=== PATIENT | male | born 1990 | race Native Hawaiian/Other Pacific Islander ===

== ENCOUNTER 2016-12-17 10:16 | Emergency (ER) | payer MEDICAID ==
[2016-12-17 10:20] VITALS: BMI 23.5
--- NOTE | 2016-12-17 10:43 | ED PDOC ---
HPI: General Adult Time Seen by Provider: 12/17/16 10:35 Chief Complaint (Provider): neck pain History Per: Patient History/Exam Limitations: no limitations Additional Complaint(s): 26yo male was playing rugby over the weekend states he fell on his neck a few times while playing. now complains of right rib pain, some neck pain and headaches. No numbness to right arm. Denies any trauma. States he recently moved to the area and does not have a PMD or preferred pharmacy Past Medical History Reviewed: Historical Data, Nursing Documentation, Vital Signs Vital Signs: Last Vital Signs Temp 97.9 F 12/17/16 12:31 Pulse 77 12/17/16 12:31 Resp 18 12/17/16 12:31 BP 121/77 12/17/16 12:31 Pulse Ox 99 12/17/16 12:31 - Medical History PMH: No Chronic Diseases - Surgical History Other surgeries: ACL repair - Family History Family History: States: Unknown Family Hx - Social History Current smoker - smoking cessation education provided: No Alcohol: Social Drugs: Denies - Home Medications Home Medications: Ambulatory Orders Medication Instructions Recorded Cyclobenzaprine [Cyclobenzaprine 10 mg PO Q8 PRN #9 tab 12/17/16 HCl] Naproxen [Naprosyn] 500 mg PO BID PRN #14 tablet 12/17/16 - Allergies Allergies/Adverse Reactions: Allergies Allergy/AdvReac Type Severity Reaction Status Date / Time No Known Allergies Allergy Verified 12/17/16 10:50 Review of Systems ROS Statement: Except As Marked, All Systems Reviewed And Found Negative Physical Exam - Reviewed Nursing Documentation Reviewed: Yes Vital Signs Reviewed: Yes - Physical Exam Appears: Positive for: Well, Non-toxic, No Acute Distress Head Exam: Positive for: ATRAUMATIC, NORMAL INSPECTION, NORMOCEPHALIC Skin: Positive for: Warm, Dry Neck: Positive for: Supple (+some hypertonisity in right parasinal cervical musculature) Cardiovascular/Chest: Positive for: Chest Non Tender Respiratory: Negative for: Respiratory Distress Extremity: Positive for: Normal ROM. Negative for: Tenderness Neurologic/Psych: Positive for: Alert, Oriented (x3) - ECG O2 Sat by Pulse Oximetry: 100 Medical Decision Making Medical Decision Makin: States he will not be driving today and lives a few blocks away from this ED. Explained will give Toradol & valium in the ED and reassess. Instructed to use warm compresses at home. 1225 reevaluation. symptoms have mostly resolved. Patient wants to go home. Provided with a note for school and instructions for followup. Disposition - Clinical Impression Clinical Impression: Cervical strain, acute - Patient ED Disposition Is Patient to be Admitted: No Counseled Patient/Family Regarding: Studies Performed, Diagnosis, Need For Followup, Rx Given - Disposition Referrals: Flo Croft DO [[facility]] - Disposition: Routine/Home Disposition Time: 12:25 Condition: STABLE Additional Instructions: Use gentle heat therapy to area 4x daily today and tomorrow. Use medications as directed, caution as muscle relaxants will cause drowsiness. Return to ER for any worse or new symptoms. Prescriptions: Cyclobenzaprine [Cyclobenzaprine HCl] 10 mg PO Q8 PRN #9 tab PRN Reason: Muscle Spasm Naproxen [Naprosyn] 500 mg PO BID PRN #14 tablet PRN Reason: Pain, Moderate (4-7) Instructions: Cervical Strain (DC) Forms: [facility] ED School/Work Excuse Additional Comments - Additional Comments Additional Comments: Scribe Attestation: Documented by Thierry Farrell acting as a scribe for Juan Sigala DO. Provider Scribe Attestation: All medical record entries made by the Scribe were at my direction and personally dictated by me. I have reviewed the chart and agree that the record accurately reflects my personal performance of the history, physical exam, medical decision making, and the department course for this patient. I have also personally directed, reviewed, and agree with the discharge instructions and disposition.
[2016-12-17 12:35] VITALS: BP 121/77; PULSE 77; RESP 18; TEMP 97.9
[2016-12-20 16:17] VITALS: O2SAT 100
== END 2016-12-17 12:54 | disposition home or self-care (01) ==
LOC: H.ER 10:16
DX: S16.1XXA Strain of muscle, fascia and tendon at neck level, initial encounter (principal); Y93.63 Activity, rugby

== ENCOUNTER 2017-04-26 21:43 | Emergency (ER) | payer MEDICAID ==
[2017-04-26 21:46] VITALS: BMI 25.1
[2017-04-26 21:50] VITALS: BP 144/88
--- NOTE | 2017-04-26 22:03 | ED PDOC ---
HPI: Psych/Substance Abuse Time Seen by Provider: 04/26/17 21:43 Chief Complaint (Nursing): Alcohol Ingestion Chief Complaint (Provider): ALCOHOL INGESTION History Per: Patient (26 Y/O MALE BROUGHT TO ED FOR EVALUATION OF DISRUPTIVE BEHAVIOR IN FRIEND'S APARTMENT BUILDING. PATIENT ADMITS ETOH UPSET THAT HE IS BROUGHT TO ED WITHOUT REASON. DENIES ANY HEAD INJURY/ASSAULT. NO COMPLAINTS CURRENTLY.) Past Medical History Reviewed: Historical Data, Nursing Documentation, Vital Signs Vital Signs: Last Vital Signs Temp 99.7 F H 04/26/17 21:47 Pulse 145 H 04/26/17 21:47 Resp 18 04/26/17 21:47 BP 144/88 04/26/17 21:47 Pulse Ox 97 04/26/17 21:47 - Family History Family History: States: Unknown Family Hx - Home Medications Home Medications: Ambulatory Orders Medication Instructions Recorded Cyclobenzaprine [Cyclobenzaprine 10 mg PO Q8 PRN #9 tab 12/17/16 HCl] Naproxen [Naprosyn] 500 mg PO BID PRN #14 tablet 12/17/16 - Allergies Allergies/Adverse Reactions: Allergies Allergy/AdvReac Type Severity Reaction Status Date / Time No Known Allergies Allergy Verified 04/26/17 21:46 Review of Systems ROS Statement: Except As Marked, All Systems Reviewed And Found Negative Physical Exam - Reviewed Nursing Documentation Reviewed: Yes Vital Signs Reviewed: Yes - Physical Exam Appears: Positive for: Well, Non-toxic, No Acute Distress Head Exam: Positive for: ATRAUMATIC, NORMAL INSPECTION, NORMOCEPHALIC Skin: Positive for: Normal Color, Warm, DRY Eye Exam: Positive for: EOMI, Normal appearance, PERRL ENT: Positive for: Normal ENT Inspection Neck: Positive for: Normal, Painless ROM Cardiovascular/Chest: Positive for: Regular Rate, Rhythm Respiratory: Positive for: CNT, Normal Breath Sounds Gastrointestinal/Abdominal: Positive for: Normal Exam, Bowel Sounds, Soft Back: Positive for: Normal Inspection Extremity: Positive for: Normal ROM Neurologic/Psych: Positive for: Alert, Oriented - ECG O2 Sat by Pulse Oximetry: 97 - Progress ED Course And Treament: STEADY GAIT NOTED. PATIENT ACCOMPANIED BY FRIEND WHO WILL ESCORT HIM TO HIS APARTMENT WALKING. Disposition - Clinical Impression Clinical Impression: Alcohol ingestion - Patient ED Disposition Is Patient to be Admitted: No - Disposition Disposition: Routine/Home Disposition Time: 22:03 Condition: FAIR Instructions: Alcohol Intoxication (DC) Forms: [employer] (Citizen Of [place])
[2017-04-26 22:36] VITALS: PULSE 94; RESP 16; TEMP 98; O2SAT 100
== END 2017-04-26 22:36 | disposition home or self-care (01) ==
LOC: H.ER 21:43
DX: T51.0X1A Toxic effect of ethanol, accidental (unintentional), initial encounter (principal); Y92.039 Unspecified place in apartment as the place of occurrence of the external cause

== ENCOUNTER 2018-05-15 07:03 | Emergency (ER) | payer MEDICAID ==
[2018-05-15 07:04] VITALS: BMI 25.1
[2018-05-15 07:31] VITALS: O2SAT 98
--- NOTE | 2018-05-15 08:10 | ED PDOC ---
HPI: Psych/Substance Abuse Time Seen by Provider: 05/15/18 07:44 Chief Complaint (Nursing): Anxiety Chief Complaint (Provider): Anxiety History Per: Patient History/Exam Limitations: no limitations Onset/Duration Of Symptoms: Days (1) Associated Symptoms: Other (Palpitations) Additional Complaint(s): 27 years old male presents to the ED for evaluation of anxiety of unknown trigger associated with palpitations and shortness of breath onset yesterday. Patient reports he has been unable to sleep. He denies chest pain. PMD: non provided Past Medical History Reviewed: Historical Data, Nursing Documentation, Vital Signs Vital Signs: Last Vital Signs Temp Pulse 71 05/15/18 07:27 Resp 20 05/15/18 07:27 BP 134/84 05/15/18 07:27 Pulse Ox 98 05/15/18 07:27 - Medical History PMH: No Chronic Diseases - Surgical History Surgical History: No Surg Hx - Family History Family History: States: Unknown Family Hx - Social History Current smoker - smoking cessation education provided: No Alcohol: Social Drugs: Denies - Home Medications Home Medications: Ambulatory Orders Medication Instructions Recorded Cyclobenzaprine [Cyclobenzaprine 10 mg PO Q8 PRN #9 tab 12/17/16 HCl] Naproxen [Naprosyn] 500 mg PO BID PRN #14 tablet 12/17/16 - Allergies Allergies/Adverse Reactions: Allergies Allergy/AdvReac Type Severity Reaction Status Date / Time No Known Allergies Allergy Verified 04/26/17 21:46 Review of Systems ROS Statement: Except As Marked, All Systems Reviewed And Found Negative Cardiovascular: Positive for: Palpitations. Negative for: Chest Pain Respiratory: Positive for: Shortness of Breath Psych: Positive for: Anxiety Physical Exam - Reviewed Nursing Documentation Reviewed: Yes Vital Signs Reviewed: Yes - Physical Exam Appears: Positive for: Non-toxic, No Acute Distress Head Exam: Positive for: ATRAUMATIC, NORMOCEPHALIC Skin: Positive for: Normal Color, Warm, Dry Eye Exam: Positive for: Normal appearance, EOMI, PERRL Cardiovascular/Chest: Positive for: Regular Rate, Rhythm. Negative for: Murmur Respiratory: Positive for: Normal Breath Sounds. Negative for: Wheezing Gastrointestinal/Abdominal: Positive for: Normal Exam, Soft. Negative for: Tenderness Extremity: Positive for: Normal ROM Neurologic/Psych: Positive for: Alert, Oriented (x3) - ECG O2 Sat by Pulse Oximetry: 98 (RA) Pulse Ox Interpretation: Normal - Progress Re-evaluation Time: Condition: Improved Medical Decision Making Medical Decision Making: Time: 753 Initial Plan: --EKG --Ativan 1 mg PO Scribe Attestation: Documented by Jazmyn Ballesteros, acting as a scribe for Edwin Arroyo MD. Provider Scribe Attestation: All medical record entries made by the Scribe were at my direction and personally dictated by me. I have reviewed the chart and agree that the record accurately reflects my personal performance of the history, physical exam, medical decision making, and the department course for this patient. I have also personally directed, reviewed, and agree with the discharge instructions and disposition. Disposition - Clinical Impression Clinical Impression: Anxiety attack - Patient ED Disposition Is Patient to be Admitted: No Counseled Patient/Family Regarding: Studies Performed, Diagnosis, Need For Followup - Disposition Referrals: [facility] [Outside] Disposition: Routine/Home Disposition Time: Condition: FAIR Instructions: Anxiety, Adult (DC) Forms: [employer] (Malay)
[2018-05-15 08:41] VITALS: RESP 19; TEMP 97
--- NOTE | 2018-05-15 09:48 | CARD ---
APPROVED REPORT Date of service: 05/15/2018 EKG Measurement Heart [id number] ID [id number] <Conclusion> Normal sinus rhythm Minimal voltage criteria for LVH, may be normal variant RSR' in v1 suggests RV conduction delay Borderline ECG
[2018-05-15 09:59] VITALS: BP 118/76; PULSE 60
== END 2018-05-15 10:00 | disposition home or self-care (01) ==
LOC: H.ER 07:03
DX: F41.0 Panic disorder [episodic paroxysmal anxiety] (principal); R00.2 Palpitations

== ENCOUNTER 2018-08-22 19:39 | Emergency (ER) | payer MEDICAID ==
[2018-08-22 19:39] VITALS: BMI 25.1
[2018-08-22 19:57] VITALS: BP 145/70; PULSE 88; RESP 18; TEMP 99.1; O2SAT 99
[2018-08-22] MEDS ORDERED: PROPARACAINE/FLUORESCEIN SOD 100 DROP/5 ML BOTTLE OS STA ×2 (20:32)
[2018-08-22] MEDS ORDERED: PROPARACAINE/FLUORESCEIN SOD 100 DROP/5 ML BOTTLE ONE (20:46)
--- NOTE | 2018-08-22 20:51 | ED PDOC ---
HPI: Eye Injury/Pain Time Seen by Provider: 08/22/18 20:11 Chief Complaint (Nursing): Eye Problem Chief Complaint (Provider): Eye Problem History Per: Patient History/Exam Limitations: no limitations Onset/Duration Of Symptoms: Hrs Current Symptoms Are (Timing): Still Present Associated Symptoms: Pain, Discharge From Eye Additional Complaint(s): Rosemarie Polanco is a 27 year old male with no past medical history who is presenting to the ED for evaluation of eye pain and redness onset earlier today around 4 am. Patient states that there is some drainage and redness to both eyes. He offers no other medical complaints at this time. PMD: Balsam Past Medical History Reviewed: Historical Data, Nursing Documentation, Vital Signs Vital Signs: Last Vital Signs Temp 99.1 F 08/22/18 19:56 Pulse 88 08/22/18 19:56 Resp 18 08/22/18 19:56 BP 145/70 08/22/18 19:56 Pulse Ox 99 08/22/18 19:56 - Medical History PMH: No Chronic Diseases - Surgical History Other surgeries: Orthopedic surgery - Family History Family History: States: Unknown Family Hx - Social History Ex-Smoker (has not smoked in the last 12 months): No Alcohol: Social Drugs: Denies - Home Medications Home Medications: Ambulatory Orders Medication Instructions Recorded Cyclobenzaprine [Cyclobenzaprine 10 mg PO Q8 PRN #9 tab 12/17/16 HCl] Naproxen [Naprosyn] 500 mg PO BID PRN #14 tablet 12/17/16 Gentamicin 0.1% 0.1 / TP BID #1 tube 08/22/18 - Allergies Allergies/Adverse Reactions: Allergies Allergy/AdvReac Type Severity Reaction Status Date / Time No Known Allergies Allergy Verified 04/26/17 21:46 Review of Systems ROS Statement: Except As Marked, All Systems Reviewed And Found Negative Eyes: Positive for: Pain, Conjunctivae Inflammation, Eyelid Inflammation, Redness Physical Exam - Reviewed Nursing Documentation Reviewed: Yes Vital Signs Reviewed: Yes - Physical Exam Appears: Positive for: Well, Non-toxic, No Acute Distress Head Exam: Positive for: ATRAUMATIC, NORMAL INSPECTION, NORMOCEPHALIC Skin: Positive for: Normal Color, Warm, DRY Eye Exam: Positive for: EOMI, PERRL, Conjunctival injection, Other (scleral injection, positive drainage). Negative for: Normal appearance ENT: Positive for: Normal ENT Inspection Cardiovascular/Chest: Negative for: Bradycardia, Tachycardia Respiratory: Negative for: Accessory Muscle Use, Respiratory Distress Back: Positive for: Normal Inspection Extremity: Positive for: Normal ROM Neurologic/Psych: Positive for: Alert, Oriented. Negative for: Motor/Sensory Deficits - ECG O2 Sat by Pulse Oximetry: 99 (RA) Pulse Ox Interpretation: Normal Medical Decision Making Medical Decision Making: Time: 20:32 Plan: --Flucaine Eye Drops 1 drop OS (x2) Scribe Attestation: Documented by Justine Aguirre, acting as a scribe for Thea Alvarado PA-C. Provider Scribe Attestation: All medical record entries made by the Scribe were at my direction and personally dictated by me. I have reviewed the chart and agree that the record accurately reflects my personal performance of the history, physical exam, medical decision making, and the department course for this patient. I have also personally directed, reviewed, and agree with the discharge instructions and disposition. Disposition - Clinical Impression Clinical Impression: Bacterial conjunctivitis - Disposition Referrals: [facility] [Outside] Disposition: Routine/Home Disposition Time: 20:43 Condition: GOOD Prescriptions: Gentamicin 0.1% 0.1 / TP BID #1 tube Instructions: Conjunctivitis ([place]) Forms: [employer] ([place]ian)
== END 2018-08-22 21:37 | disposition home or self-care (01) ==
LOC: H.ER 19:39
DX: H10.89 Other conjunctivitis (principal); Z87.891 Personal history of nicotine dependence